=== PATIENT | female | born 1985 | race Two or more races ===

== ENCOUNTER 2022-03-21 15:28 | Emergency (ER) | payer OTHER ==
[~2022-03-21] VITALS: Ht 160 cm; Wt 72.0 kg
[2022-03-21 17:50] VITALS: BP 102/63
[2022-03-21] MEDS ORDERED: ACETAMINOPHEN 500 MG TAB PO ONE (18:00)
[2022-03-21] MEDS ORDERED: SODIUM CHLORIDE 0.9% 1,000 ML IV ONE (18:30)
[2022-03-21] MEDS ORDERED: CYCL-837 PO (18:59)
[2022-03-21] MEDS ORDERED: IBUP800T26 PO (18:59)
== END 2022-03-21 19:08 | disposition home or self-care (01) ==
LOC: ER 15:28 → EDBD 15:28 → ER 19:08
DX: S80.12XA Contusion of left lower leg, initial encounter (principal); S80.02XA Contusion of left knee, initial encounter; V43.52XA Car driver injured in collision with other type car in traffic accident, initial encounter; Y93.89 Activity, other specified; Y92.410 Unspecified street and highway as the place of occurrence of the external cause; Y99.8 Other external cause status
CPT/HCPCS: 73590